=== PATIENT | female | born 1960 | race Caucasian/White ===

== ENCOUNTER 2018-10-26 13:18 | Emergency (ER) | payer BC ==
[2018-10-26] MEDS ORDERED: Aspirin 81 mg CHEW TAB* 81 MG TAB.CHEW PO ONE (13:41)
[2018-10-26] MEDS ORDERED: Nitroglycerin TAB 0.4 MG* 0.4 MG TAB SL ONE (13:45)
[2018-10-26 14:05] LABS: ABS Basophils 0 10^3/ul (0-0.2); ABS Eosinophils 0 10^3/ul (0-0.6); ABS Lymphocytes 1.6 10^3/ul (1.0-4.8); ABS Monocytes 0.5 10^3/ul (0-0.8); ABS Neutrophils 2.7 10^3/ul (1.5-7.7); ABS Nucleated RBC 0 10^3/ul; Eosinophil % 0.5 %; Hematocrit 42 % (35-47); Hemoglobin 14.1 g/dl (12.0-16.0); Lymphocyte % 32.8 %; Mean Corpuscular HGB Conc 34 g/dl (31-36); Mean Corpuscular Hemoglobin 31 pg (27-31); Mean Corpuscular Volume 90 fL (80-97); Mean Platelet Volume 8.3 fL (7.4-10.4); Nucleated Red Blood Cells % 0; Platelet Count 294 10^3/ul (150-450); Red Blood Count 4.63 10^6/ul (4.00-5.40); Red Cell Distribution Width 12 % (10.5-15); White Blood Count 4.9 10^3/ul (3.5-10.8)
[2018-10-26 14:16] LABS: Activated Partial Thrombo Time 28.5 seconds (26.0-36.3); INR 0.87 (0.77-1.02)
[2018-10-26] MEDS: NS 0.9% 1000 ML* 2,000 ML IV ONE ×2 (14:26→14:27)
[2018-10-26 14:27] LABS: Albumin 4.4 g/dL (3.2-5.2); Albumin/Globulin Ratio 1.7 (1-3); BUN/Creatinine Ratio 27.3 (8-20); Calcium 9.4 mg/dL (8.6-10.3); EGFR Non-African American 112.7 (>60); Globulin 2.6 g/dL (2-4); Magnesium 2.1 mg/dL (1.9-2.7); Potassium 3.7 mmol/L (3.5-5.0); Total Bilirubin 0.3 mg/dL (0.2-1.0)
[2018-10-26 14:48] LABS: Urine Appearance Clear; Urine Bilirubin Negative (Negative); Urine Blood Negative (Negative); Urine Color Yellow; Urine Glucose Negative (Negative); Urine Ketones Negative (Negative); Urine Nitrite Negative (Negative); Urine Protein Negative (Negative); Urine Specific Gravity 1.021 (1.010-1.030); Urine Urobilinogen Negative (Negative)
--- OUTSIDE RECORDS SUMMARY | 2018-10-26 14:48 | XMS REPORT ---
:1960 External Reference #:[id number] Author Organization [facility] Address [address] [place] [address] Phone [phone] Care Team Providers Name Role Phone Avis De La Paz M.D. Care Team Information Cook Chill Technician Unavailable Avis De La Paz M.D. Primary Care Physician Unavailable Payers Type Date Identification Numbers Payment Provider Subscriber Commercial Effective: Policy Number: BC/BS Of ROSE Zya Walden 2018 [id number] PayID: [id number] [address] [address] [place] [address] Problems Description No Information Family History Date Family Member(s) Problem(s) Comments Father due to Parkinson's Disease () - at age 77 Mother due to COPD () Mother due to Congestive Heart () - age 88 Failure Paternal Grandfather due to Stroke () Paternal Grandmother due to Heart Disease () Maternal Grandfather due to DC () Maternal Grandmother due to DC () Social History Type Date Description Comments Education Highest Level Completed, 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 [employer] Lives With Spouse Diet Healthy, Well Balanced Sleep Reports normal sleep activity Pets 2 dogs Pets 2 cats 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 Cigarette Use Never Smoked Cigarettes ETOH Use Occasional Daily Caffeine Some Caffeine Exercise Type/Frequency Exercises regularly Allergies, Adverse Reactions, Alerts Date Description Reaction Status Severity Comments 10/18/2018 Seasonal active Medications Medication Date Status Form Strength Qnty SIG Indications Ordering Provider Chlorpheniramine /0 Active Tablets 4mg as Unknown Maleate 000 needed Tylenol 0 Active Tablets 325mg take 2 Unknown 000 tablets( 650mg) by mouth every 4 hours as needed for pain Vitamin D-3 Active Tablets 5000Unit 1 by Unknown 000 mouth every day as needed Vital Signs Date Vital Result Comment 10/18/2018 BP Systolic 140 mmHg BP Diastolic 90 mmHg Heart Rate 84 /min Body Temperature 97.8 F Respiratory Rate 17 /min Height 63.5 inches 5'3.50" Weight 141.38 lb BMI (Body Mass Index) 24.6 kg/m2 Results Test Date Test Result H/L Range Note Laboratory test finding 10/20/2018 Free T3 <pending> 2.0-4.9 Free T4 <pending> 0.75-1.54 TSH <pending> 0.5-5.0 Laboratory test finding 10/20/2018 Vitamin D, 25 Hydroxy <pending> ng/mL 30-100 Procedures Date CPT Code Description Status 09/30/2016 Mammogram Completed 10/31/2009 Colonoscopy Completed Plan of Care 10/18/2018 - Chaya Carolina, FNPZ00.00 Encntr for general adult medical exam w/o abnormal findingsComments:Will come in for fasting labs Anticipatory guidance given - healthy lifestyle, safety, preventionFollow up:Followup:. (Follow up) E55.9 Vitamin D deficiency, [id number] Cardiac arrhythmia, unspecifiedComments:Refer to cardiolgy for an ECHOZ12.31 Encntr screen mammogram for malignant neoplasm of breastNew Xrays:Mammography Screening, Bilateral; 2-View Each BreastComments:Schedule mammogram
--- NOTE | 2018-10-26 14:56 | ED ---
HPI Chest Pain - HPI Summary HPI Summary: A 58 y/o female presents to the ED c/o chest pain. Additionally c/o arrhythmias. Currently, the patient is not experiencing the arrhythmias, but does have the left shoulder pain reaching 2-3/10 as she is lying down on the stretcher in the [facility]. She stated that she "does not feel sick", but this is the first time this has ever happened to her. In the ED room, the patient has a pulse of 80 BPM, O2 saturation of 100%, and blood pressure of 157/92. According to the patient, she felt like she was experiencing arrhythmias. She stated that the arrhythmia felt like "just a short weird sensation" over the last month. She noted that a ECHO was done a couple years ago, but nothing was found. However, last month, since she has been experiencing this arrhythmia, she decided to cut back on caffeine and drink more water. She characterized the arrhythmia was a "glump". She then noted that when she was walking her dogs this morning, she felt fullness, "but not a lot" of discomfort in her left chest and also had left shoulder pain. She continued to state that when she sat down, it went away, but her shoulder was still exhibiting the pain of around a 2 -3/10. After some time, she was walking across the parking lot (not walking her dogs) when she experienced the same exact pain she did before when she was walking her dogs. She denies any SOB, nausea, vomiting, abdominal pain, leg pain , headache, but did have some dizziness. The dizziness happened only one time when she had an arrhythmia that occurred within the last few weeks. The dizziness/lightheadedness didn't stay long. To alleviate the symptoms, she took 3-baby Aspirin as she was nervous. She was okay after when she was working around the apartment. She stated that last night when she was walking her dogs she was a bit achy, but nothing crazy. She noted that she did have some bad falls due to slipping on ice and being knocked over by her dog lately, with the most recent fall approximately 10/13/18. Another ECHO was done yesterday at the [facility] in which a slight Mitral Value Prolapse was found. Pt did not see the sole layer hand yesterday, just had the ECHO that was ordered by her PCP. Patient did take antibiotics for dental prophylaxis of MVP in the past , but then stopped recently per doctor's recommendations. Pt is post menopausal. Patient never had stress test done. Patient has no allergies to Aspirin or Ibuprofen, or any medications, only to shrimp. Patient drove to [facility] ED. Cardiac risks: no DM, no HTN, no hyperlipidemia, never smoked, +fam hx in many relatives, including an uncle who with CAD before the age of 50. Pt takes no daily medications. - History of Current Complaint Chief Complaint: EDChestPainROMI Time Seen by Provider: 10/26/18 13:39 Hx Obtained From: Patient Onset/Duration: Started Hours Ago, Resolved Timing: Intermittent Initial Severity: Mild Current Severity: Mild Pain Intensity: 3 Pain Scale Used: 0-10 Numeric Chest Pain Location: Left Anterior Chest Pain Radiates: Yes Chest Pain Radiates To:: Shoulder - LEFT Character: Other: - "FULLNESS" Aggravating Factor(s): Nothing Alleviating Factor(s): OTC Meds - ASPIRIN Associated Signs and Symptoms: Positive: Chest Pain, Dizziness - ONE EPISODE WITHIN THE LAST FEW WEEKS, NOT CURRENTLY. Negative: Headaches, Shortness of Breath, Fever, Nausea, Abdominal Pain, Vomiting - Risk Factors AMI/ACS Risk Factors: Family History - uncle before age 50 with supposed CAD - Allergy/Home Medications Allergies/Adverse Reactions: Allergies Allergy/AdvReac Type Severity Reaction Status Date / Time shrimp Allergy Nausea And Verified 10/26/18 14:19 Vomiting Home Medications: Home Medications NK [No Home Medications Reported] 10/26/18 [History Confirmed 10/26/18] PMH/Surg Hx/FS Hx/Imm Hx Previously Healthy: Yes Endocrine/Hematology History: Reports: Other Endocrine/Hematological Disorders - NO HX OF BLOT CLOTS OR PULMONARY EMBOLISM OR DVT Cardiovascular History: Reports: Other Cardiovascular Problems/Disorders - SLIGHT MITRAL VALVE PROLAPSE Respiratory History: Denies: Hx Asthma, Hx Pneumonia - Surgical History Surgery Procedure, Year, and Place: PER PATIENT, NO PRIOR SURGERIES. - Immunization History Date of Tetanus Vaccine: unknown Date of Influenza Vaccine: NO Infectious Disease History: No Infectious Disease History: Denies: Traveled Outside the [place] in Last 30 Days - Family History Known Family History: Positive: Cardiac Disease - MOTHER, FATHER, AND ALL GRANDPARENTS, NONE BEFORE 50. 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 [employer] Lives: With Family Alcohol Use: Occasionally Substance Use Type: Reports: None Smoking Status (MU): Never Smoked Tobacco Review of Systems Negative: Fever Positive: Chest Pain, Other - POSITIVE: ARRHYTHMIAS Negative: Shortness Of Breath Negative: Abdominal Pain, Vomiting, Nausea Positive: no symptoms reported Positive: Other - POSITIVE: LEFT SHOULDER PAIN; NEGATIVE: LEG PAIN Skin: Negative Neurological: Other - POSITIVE: DIZZINESS/LIGHTHEADEDNESS WITHIN THE LAST FEW WEEKS, NOT CURRENTLY Negative: Headache Psychological: Normal All Other Systems Reviewed And Are Negative: Yes Physical Exam - Summary Physical Exam Summary: Appearance: Well-appearing, minimal pain distress, well-nourished Skin: Warm, color reflects adequate perfusion, dry Head: Normal Head/Face inspection, atraumatic Eyes: Conjunctiva clear ENT: Normal inspection Neck: Supple, no nodes, no JVD Respiratory: Lungs clear, normal breath sounds, no respiratory distress Cardio: RRR, No murmur, pulses normal, brisk capillary refill Abdomen: Soft, nontender Bowel sounds: Present Musculoskeletal: Strength Intact/ROM intact, no calf tenderness, no edema, left shoulder with full ROM, no deformity, nontender on palpation, left chest wall under left breast with reproducible tenderness, no crepitus, no bruising, not the same pain as the "fullness". Psychological: Normal Neuro: Alert, muscle tone normal, no focal deficit Triage Information Reviewed: Yes Vital Signs On Initial Exam: Initial Vitals Temp Pulse Resp BP Pulse Ox 98.9 F 80 18 157/92 98 10/26/18 13:33 10/26/18 13:33 10/26/18 13:33 10/26/18 13:33 10/26/18 13:33 Vital Signs Reviewed: Yes Diagnostics - Vital Signs Vital Signs Temp Pulse Resp BP Pulse Ox 10/26/18 14:37 23 137/83 10/26/18 14:28 78 20 150/87 96 10/26/18 14:07 84 22 141/100 100 10/26/18 14:00 78 19 100 10/26/18 13:52 99 10/26/18 13:37 69 17 157/92 99 10/26/18 13:36 72 10 150/103 99 10/26/18 13:33 98.9 F 80 18 157/92 98 - Laboratory Lab Results: Lab Results 10/26/18 10/26/18 10/26/18 Range/Units 13:59 13:59 13:59 WBC 4.9 (3.5-10.8) 10^3/ul RBC 4.63 (4.00-5.40) 10^6/ul Hgb 14.1 (12.0-16.0) g/dl Hct 42 (35-47) % MCV 90 (80-97) fL MCH 31 (27-31) pg MCHC 34 (31-36) g/dl RDW 12 (10.5-15) % Plt Count 294 (150-450) 10^3/ul MPV 8.3 (7.4-10.4) fL Neut % (Auto) 56.0 % Lymph % (Auto) 32.8 % [place] % (Auto) 9.7 % Eos % (Auto) 0.5 % Baso % (Auto) 1.0 % Absolute Neuts (auto) 2.7 (1.5-7.7) 10^3/ul Absolute Lymphs (auto) 1.6 (1.0-4.8) 10^3/ul Absolute Monos (auto) 0.5 (0-0.8) 10^3/ul Absolute Eos (auto) 0 (0-0.6) 10^3/ul Absolute Basos (auto) 0 (0-0.2) 10^3/ul Absolute Nucleated RBC 0 10^3/ul Nucleated RBC % 0 INR (Anticoag Therapy) 0.87 (0.77-1.02) APTT 28.5 (26.0-36.3) seconds D-Dimer, Quantitative < 200 (Less Than 230) ng/mL Sodium 140 (135-145) mmol/L Potassium 3.7 (3.5-5.0) mmol/L Chloride 104 (101-111) mmol/L Carbon Dioxide 29 (22-32) mmol/L Anion Gap 7 (2-11) mmol/L BUN 15 (6-24) mg/dL Creatinine 0.55 (0.51-0.95) mg/dL Est GFR ( Amer) 136.4 (>60) Est GFR (Non-Af Amer) 112.7 (>60) BUN/Creatinine Ratio 27.3 H (8-20) Glucose 85 (70-100) mg/dL Lactic Acid (0.5-2.0) mmol/L Calcium 9.4 (8.6-10.3) mg/dL Magnesium 2.1 (1.9-2.7) mg/dL Total Bilirubin 0.30 (0.2-1.0) mg/dL AST 15 (13-39) U/L ALT 10 (7-52) U/L Alkaline Phosphatase 94 (34-104) U/L Total Creatine Kinase 54 (10-223) U/L CK-MB (CK-2) 1.4 (0.6-6.3) ng/mL Troponin I 0.00 (<0.04) ng/mL B-Natriuretic Peptide (<=100) pg/mL Total Protein 7.0 (6.4-8.9) g/dL Albumin 4.4 (3.2-5.2) g/dL Globulin 2.6 (2-4) g/dL Albumin/Globulin Ratio 1.7 (1-3) TSH Pending Thyroxine (T4) Pending 10/26/18 10/26/18 Range/Units 13:59 13:59 WBC (3.5-10.8) 10^3/ul RBC (4.00-5.40) 10^6/ul Hgb (12.0-16.0) g/dl Hct (35-47) % MCV (80-97) fL MCH (27-31) pg MCHC (31-36) g/dl RDW (10.5-15) % Plt Count (150-450) 10^3/ul MPV (7.4-10.4) fL Neut % (Auto) % Lymph % (Auto) % [place] % (Auto) % Eos % (Auto) % Baso % (Auto) % Absolute Neuts (auto) (1.5-7.7) 10^3/ul Absolute Lymphs (auto) (1.0-4.8) 10^3/ul Absolute Monos (auto) (0-0.8) 10^3/ul Absolute Eos (auto) (0-0.6) 10^3/ul Absolute Basos (auto) (0-0.2) 10^3/ul Absolute Nucleated RBC 10^3/ul Nucleated RBC % INR (Anticoag Therapy) (0.77-1.02) APTT (26.0-36.3) seconds D-Dimer, Quantitative (Less Than 230) ng/mL Sodium (135-145) mmol/L Potassium (3.5-5.0) mmol/L Chloride (101-111) mmol/L Carbon Dioxide (22-32) mmol/L Anion Gap (2-11) mmol/L BUN (6-24) mg/dL Creatinine (0.51-0.95) mg/dL Est GFR ( Amer) (>60) Est GFR (Non-Af Amer) (>60) BUN/Creatinine Ratio (8-20) Glucose (70-100) mg/dL Lactic Acid 0.7 (0.5-2.0) mmol/L Calcium (8.6-10.3) mg/dL Magnesium (1.9-2.7) mg/dL Total Bilirubin (0.2-1.0) mg/dL AST (13-39) U/L ALT (7-52) U/L Alkaline Phosphatase (34-104) U/L Total Creatine Kinase (10-223) U/L CK-MB (CK-2) (0.6-6.3) ng/mL Troponin I (<0.04) ng/mL B-Natriuretic Peptide 24 (<=100) pg/mL Total Protein (6.4-8.9) g/dL Albumin (3.2-5.2) g/dL Globulin (2-4) g/dL Albumin/Globulin Ratio (1-3) TSH Thyroxine (T4) Result Diagrams: 10/26/18 13:59 10/26/18 13:59 Lab Statement: Any lab studies that have been ordered have been reviewed, and results considered in the medical decision making process. - Radiology CXR Radiology Interpretation Completed By: Radiologist Summary of Radiographic Findings: NO ACTIVE CARDIOPULMONARY DISEASE. ED PHYSICIAN REVIEWED THIS RADIOLOGY REPORT. - EKG 1339 Cardiac Rate: NL - 69 BPM EKG Rhythm: Sinus Rhythm - 69 BPM EKG Comparison: Other - NO PRIOR TO COMPARE Summary of EKG Findings: nl YANIV CT, nl QTc, nl axis , no acute changes, downsloping ST in lead III Re-Evaluation - Re-Evaluation First Eval Re-Evaluation Time: 17:00 Change: Improved Comment: Pt remains pain free. BP systolic 125. States NTG did not really make any difference. Second Eval Re-Evaluation Time: 18:15 Change: Unchanged - remains pain free. Agrees to discharge. Bill is on phone with discharge instructions. Voices understanding, and questions answered to best of my ability. Pt, and I all agree pt should be seen 10/27/18 and pt is advised to see her PCP, or go to [facility] clinic, or return to ED. Pt's BP is 145 systolic. Chest Pain Course/Dx - Course Course Of Treatment: A 58 y/o female presents to the ED c/o chest pain. Additionally c/o arrhythmias. Currently, the patient is not experiencing the arrhythmias, but does have the left shoulder pain reaching 2-3/10 as she is lying down on the stretcher in the [facility]. She stated that she "does not feel sick", but this is the first time this has ever happened to her. In the ED room , the patient has a pulse of 80 BPM, O2 saturation of 100%, and blood pressure of 157/92. According to the patient, she felt like she was experiencing arrhythmias. She stated that the arrhythmia felt like "just a short weird sensation" over the last month. She then noted that when she was walking her dogs this morning, she felt fullness, "but not a lot" of discomfort in her left chest and also had left shoulder pain. She continued to state that when she sat down, it went away, but her shoulder was still exhibiting the pain of around a 2 -3/10. After some time, she was walking across the parking lot (not walking her dogs) when she experienced the same exact pain she did before when she was walking her dogs. She denies any SOB, nausea, vomiting, abdominal pain, leg pain , headache, but did have some dizziness. The dizziness happened only one time when she had a arrhythmia that occurred within the last few weeks. The dizziness /lightheadedness didn't stay long. Pt medications reviewed this visit. Physical examination was unremarkable except for mild reproducible chest pain under her left breast that was not the same pain as the fullness. Left shoulder exam was normal, and no murmur of click was heard by me to appreciate MVP that was evident on ECHO. A CXR revealed no active cardiopulmonary disease. An EKG revealed NSR of 69 BPM, nl YANIV CT, nl QTc, nl axis, no acute changes, downsloping ST in lead III. No prior EKG to compare to. Hematology, coagulation , Chemistry, and urinalysis screens were done. No significant laboratory abnormalities were found. Troponins x 2, three hours apart, with pt pain free in the ED were 0.00. In the ED course, the patient received an additional 81mg Aspirin to total 324mg for the day, NTG 0.4mg SL x1 that did not change her pain , and IV fluids. Pt was mildly hypertensive, systolic 140's in the ED which decreased after the NTG to 120's but then returned to 140's. Pt does not carry a dx of HTN prior to today's visit. Patient will be discharged with a diagnosis of chest pain and elevated blood pressure without diagnosis of HTN. Patient is to follow up with [facility] in 1 day. She was also advised to follow up with primary care provider, Dr. Avis De La Paz, as soon as possible. Patient is to return to ED for any new or worsening symptoms. Patient is agreeable with this plan. - Chest Pain Differential Diagnosis/HQI/PQRI: Acute LA, ACS, Angina, Chest Wall, GI Disease, Lower Respiratory Infection, Pulmonary Embolism, Other: - atypical chest pain associated with mitral valve prolapse - Diagnoses Provider Diagnoses: Elevated blood pressure reading without diagnosis of hypertension, Chest pain Discharge - Sign-Out/Discharge Documenting (check all that apply): Patient Departure - DISCHARGE - Discharge Plan Condition: Stable Disposition: HOME Patient Education Materials: Chest Pain (ED) Referrals: [facility] [Outside] - 1 Day Avis De La Paz MD [Primary Care Provider] - As Soon As Possible Additional Instructions: You had two troponin levels that were zero, meaning there is no indication of damage to your heart today. The discomfort with exertion that you describe could be angina, so you should be seen by Dr. De La Paz or our [facility] clinic tomorrow. Return to the ER if you have new or worsening symptoms. - Billing Disposition and Condition Condition: STABLE Disposition: Home - Attestation Statements Document Initiated by Scribe: Yes Documenting Scribe: Pedro Layne Provider For Whom Dariene is Documenting (Include Credential): Mesha Martinez MD Scribe Attestation: Pedro Cunningham, scribed for Mesha Martinez MD on 10/27/18 at 1632. Scribe Documentation Reviewed: Yes Provider Attestation: The documentation as recorded by the scribe, Pedro Layne accurately reflects the service I personally performed and the decisions made by me, Mesha Martinez MD Status of Scribe Document: Viewed
[2018-10-26 15:13] LABS: TSH (Thyroid Stimulating Horm) 0.89 mcIU/mL (0.34-5.60)
[2018-10-26 19:05] VITALS: BP 140/78
== END 2018-10-26 19:04 | disposition home or self-care (01) ==
LOC: ED 13:18
DX: R07.9 Chest pain, unspecified (principal); R03.0 Elevated blood-pressure reading, without diagnosis of hypertension
CPT/HCPCS: 36415; 71045; 80053; 81003; 82550; 82553; 83605; 83735; 83880; 84436; 84443; 84484; 85025; 85379; 85610; 85730; 93005; 96360; 96361; 99283; A9270-GY

== ENCOUNTER 2018-12-27 11:59 | Emergency (ER) | payer BC ==
[2018-12-27 14:04] LABS: ABS Basophils 0 10^3/ul (0-0.2); ABS Eosinophils 0 10^3/ul (0-0.6); ABS Lymphocytes 1.3 10^3/ul (1.0-4.8); ABS Monocytes 0.4 10^3/ul (0-0.8); ABS Neutrophils 3.2 10^3/ul (1.5-7.7); ABS Nucleated RBC 0 10^3/ul; Eosinophil % 0.7 %; Hematocrit 41 % (35-47); Hemoglobin 14.1 g/dl (12.0-16.0); Lymphocyte % 26.6 %; Mean Corpuscular HGB Conc 34 g/dl (31-36); Mean Corpuscular Hemoglobin 31 pg (27-31); Mean Corpuscular Volume 89 fL (80-97); Mean Platelet Volume 8.3 fL (7.4-10.4); Nucleated Red Blood Cells % 0; Platelet Count 294 10^3/ul (150-450); Red Blood Count 4.61 10^6/ul (4.00-5.40); Red Cell Distribution Width 12 % (10.5-15)
[2018-12-27 14:22] LABS: Albumin 4.6 g/dL (3.2-5.2); Albumin/Globulin Ratio 1.6 (1-3); BUN/Creatinine Ratio 25.8 (8-20); Calcium 9.8 mg/dL (8.6-10.3); EGFR African American 118.8 (>60); EGFR Non-African American 98.2 (>60); Globulin 2.8 g/dL (2-4); Total Bilirubin 0.4 mg/dL (0.2-1.0); Total Protein 7.4 g/dL (6.4-8.9)
[2018-12-27 14:26] LABS: CKMB ng/mL 1.6 ng/mL (0.6-6.3)
--- NOTE | 2018-12-27 14:56 | ED ---
Palpitations / Dysrhythmia - HPI Summary HPI Summary: Patient is a 58-year-old female who presents to the emergency room with a chief complaint of having palpitations since yesterday. The patient reports that she is feeling a fluttering in the left side of the chest. Patient reports that he makes him comfortable and is a frequent fluttering. She denies any chest pain, shortness of breath, or dizziness. Patient denies any nausea or vomiting, denies any abdominal pain diarrhea or constipation. Patient has no other complaints. She also reports that she had history of chest pain on September and she had an echocardiogram and a stress test which was negative. She has no other complaints. - History of Current Complaint Chief Complaint: EDDysrhythmPalp Time Seen by Provider: 12/27/18 14:33 Hx Obtained From: Patient Onset/Duration: Sudden Onset, Still Present Timing: Intermittent Episodes Lasting: Severity Initially: Mild Severity Currently: Mild Character: Fluttering Aggravating: Nothing Alleviating: Nothing - Allergy/Home Medications Allergies/Adverse Reactions: Allergies Allergy/AdvReac Type Severity Reaction Status Date / Time shrimp Allergy Nausea And Verified 12/27/18 12:06 Vomiting Home Medications: Home Medications Aspirin EC 81 mg PO DAILY 12/27/18 [History Confirmed 12/27/18] PMH/Surg Hx/FS Hx/Imm Hx Previously Healthy: Yes Endocrine/Hematology History: Reports: Other Endocrine/Hematological Disorders - NO HX OF BLOT CLOTS OR PULMONARY EMBOLISM OR DVT Cardiovascular History: Reports: Other Cardiovascular Problems/Disorders - SLIGHT MITRAL VALVE PROLAPSE Respiratory History: Denies: Hx Asthma, Hx Pneumonia - Surgical History Surgery Procedure, Year, and Place: PER PATIENT, NO PRIOR SURGERIES. - Immunization History Date of Tetanus Vaccine: unknown Date of Influenza Vaccine: NO Infectious Disease History: No Infectious Disease History: Denies: Traveled Outside the [place] in Last 30 Days - Family History Known Family History: Positive: Cardiac Disease - MOTHER, FATHER, AND ALL GRANDPARENTS, NONE BEFORE 50. UNCLE 40's, Other - P[place]IN[place]S, COPD, CHF - Social History Alcohol Use: Occasionally Substance Use Type: Reports: None Smoking Status (MU): Never Smoked Tobacco Review of Systems Constitutional: Negative Eyes: Negative ENT: Negative Positive: Palpitations, Other - fluttering of the chest. Respiratory: Negative Gastrointestinal: Negative Genitourinary: Negative Musculoskeletal: Negative Skin: Negative Neurological: Negative Psychological: Normal All Other Systems Reviewed And Are Negative: Yes Physical Exam - Summary Physical Exam Summary: VITAL SIGNS: Reviewed. GENERAL: Patient is a well developed and nourished female who is lying comfortable in the stretcher. Patient is not in any acute respiratory distress. HEAD AND FACE: No signs of trauma. No ecchymosis, hematomas or skull depressions. No sinus tenderness. EYES: PERRLA, EOMI x 2, No injected conjunctiva, no nystagmus. EARS: Hearing grossly intact. Ear canals and tympanic membranes are within normal limits. MOUTH: Oropharynx within normal limits. NECK: Supple, trachea is midline, no adenopathy, no JVD, no carotid bruit, no c- spine tenderness, neck with full ROM. CHEST: Symmetric, no tenderness at palpation LUNGS: Clear to auscultation bilaterally. No wheezing or crackles. CVS: Regular rate and rhythm, S1 and S2 present, no murmurs or gallops appreciated. ABDOMEN: Soft, non-tender. No signs of distention. No rebound no guarding, and no masses palpated. Bowel sounds are normal. EXTREMITIES: FROM in all major joints, no edema, no cyanosis or clubbing. NEURO: Alert and oriented x 3. No acute neurological deficits. Speech is normal and follows commands. SKIN: Dry and warm Vital Signs On Initial Exam: Initial Vitals Temp Pulse Resp BP Pulse Ox 97.5 F 74 18 163/93 99 12/27/18 12:02 12/27/18 12:02 12/27/18 12:02 12/27/18 12:02 12/27/18 12:02 Diagnostics - Vital Signs Vital Signs Temp Pulse Resp BP Pulse Ox 12/27/18 13:54 98.6 F 67 17 150/85 100 12/27/18 12:02 97.5 F 74 18 163/93 99 - Laboratory Lab Results: Lab Results 12/27/18 12/27/18 12/27/18 Range/Units 13:48 13:48 13:48 WBC 5.0 (3.5-10.8) 10^3/ul RBC 4.61 (4.00-5.40) 10^6/ul Hgb 14.1 (12.0-16.0) g/dl Hct 41 (35-47) % MCV 89 (80-97) fL MCH 31 (27-31) pg MCHC 34 (31-36) g/dl RDW 12 (10.5-15) % Plt Count 294 (150-450) 10^3/ul MPV 8.3 (7.4-10.4) fL Neut % (Auto) 63.6 % Lymph % (Auto) 26.6 % [place] % (Auto) 8.4 % Eos % (Auto) 0.7 % Baso % (Auto) 0.7 % Absolute Neuts (auto) 3.2 (1.5-7.7) 10^3/ul Absolute Lymphs (auto) 1.3 (1.0-4.8) 10^3/ul Absolute Monos (auto) 0.4 (0-0.8) 10^3/ul Absolute Eos (auto) 0 (0-0.6) 10^3/ul Absolute Basos (auto) 0 (0-0.2) 10^3/ul Absolute Nucleated RBC 0 10^3/ul Nucleated RBC % 0 APTT 29.2 (26.0-36.3) seconds Sodium 138 (135-145) mmol/L Potassium 4.0 (3.5-5.0) mmol/L Chloride 102 (101-111) mmol/L Carbon Dioxide 29 (22-32) mmol/L Anion Gap 7 (2-11) mmol/L BUN 16 (6-24) mg/dL Creatinine 0.62 (0.51-0.95) mg/dL Est GFR ( Amer) 118.8 (>60) Est GFR (Non-Af Amer) 98.2 (>60) BUN/Creatinine Ratio 25.8 H (8-20) Glucose 89 (70-100) mg/dL Lactic Acid (0.5-2.0) mmol/L Calcium 9.8 (8.6-10.3) mg/dL Magnesium 2.0 (1.9-2.7) mg/dL Total Bilirubin 0.40 (0.2-1.0) mg/dL AST 18 (13-39) U/L ALT 11 (7-52) U/L Alkaline Phosphatase 80 (34-104) U/L CK-MB (CK-2) 1.6 (0.6-6.3) ng/mL Troponin I 0.00 (<0.04) ng/mL B-Natriuretic Peptide (<=100) pg/mL Total Protein 7.4 (6.4-8.9) g/dL Albumin 4.6 (3.2-5.2) g/dL Globulin 2.8 (2-4) g/dL Albumin/Globulin Ratio 1.6 (1-3) TSH Pending 12/27/18 12/27/18 Range/Units 13:48 13:48 WBC (3.5-10.8) 10^3/ul RBC (4.00-5.40) 10^6/ul Hgb (12.0-16.0) g/dl Hct (35-47) % MCV (80-97) fL MCH (27-31) pg MCHC (31-36) g/dl RDW (10.5-15) % Plt Count (150-450) 10^3/ul MPV (7.4-10.4) fL Neut % (Auto) % Lymph % (Auto) % [place] % (Auto) % Eos % (Auto) % Baso % (Auto) % Absolute Neuts (auto) (1.5-7.7) 10^3/ul Absolute Lymphs (auto) (1.0-4.8) 10^3/ul Absolute Monos (auto) (0-0.8) 10^3/ul Absolute Eos (auto) (0-0.6) 10^3/ul Absolute Basos (auto) (0-0.2) 10^3/ul Absolute Nucleated RBC 10^3/ul Nucleated RBC % APTT (26.0-36.3) seconds Sodium (135-145) mmol/L Potassium (3.5-5.0) mmol/L Chloride (101-111) mmol/L Carbon Dioxide (22-32) mmol/L Anion Gap (2-11) mmol/L BUN (6-24) mg/dL Creatinine (0.51-0.95) mg/dL Est GFR ( Amer) (>60) Est GFR (Non-Af Amer) (>60) BUN/Creatinine Ratio (8-20) Glucose (70-100) mg/dL Lactic Acid 0.4 L (0.5-2.0) mmol/L Calcium (8.6-10.3) mg/dL Magnesium (1.9-2.7) mg/dL Total Bilirubin (0.2-1.0) mg/dL AST (13-39) U/L ALT (7-52) U/L Alkaline Phosphatase (34-104) U/L CK-MB (CK-2) (0.6-6.3) ng/mL Troponin I (<0.04) ng/mL B-Natriuretic Peptide 15 (<=100) pg/mL Total Protein (6.4-8.9) g/dL Albumin (3.2-5.2) g/dL Globulin (2-4) g/dL Albumin/Globulin Ratio (1-3) TSH Result Diagrams: 12/27/18 13:48 12/27/18 13:48 Lab Statement: Any lab studies that have been ordered have been reviewed, and results considered in the medical decision making process. Course/Dx - Course Assessment/Plan: Blood work without any significant abnormality, troponin is 0.00 and the TSH is normal. EKG is a normal sinus rhythm without any ST elevations. Chest x-ray impression: No acute pathology. In the ED course the patient continues to be asymptomatic therefore the patient will be discharged home with follow-up with primary care physician. Patient may benefit from a Holter monitor at this time. I discussed all the findings and test results with the patient. Patient was instructed to return to the emergency room immediately if any of the symptoms return or worsens. Plan of care was discussed with the patient and understands and agrees. All questions were answered at patient satisfaction. There were no further complaints or concerns. Lung exam before discharge: CTA B/L. Good air exchange. No wheezing or crackles heard. CVS: S1 and S2 present. No murmurs appreciated. Patient is alert and oriented x 3. Patient is hemodynamically stable. Patient will be discharged home with follow up PCP in the next 2-3 days - Diagnoses Differential Diagnosis/HQI/PQRI: Positive: Paroxymal SVT, V-Tach Provider Diagnoses: Palpitations Discharge - Sign-Out/Discharge Documenting (check all that apply): Patient Departure Patient Received Moderate/Deep Sedation with Procedure: No - Discharge Plan Condition: Stable Disposition: HOME Patient Education Materials: Heart Palpitations (DC) Referrals: Avis De La Paz MD [Primary Care Provider] - Additional Instructions: Patient with follow-up with primary care physician next 2 days. Patient would benefit from a Holter monitor. Patient was recommended to return to the emergency room if the symptoms worsen. - Billing Disposition and Condition Condition: STABLE Disposition: Home - Attestation Statements Document Initiated by Ivania: No
[2018-12-27 15:00] LABS: TSH (Thyroid Stimulating Horm) 0.69 mcIU/mL (0.34-5.60)
[2018-12-27 16:03] VITALS: BP 140/99
== END 2018-12-27 16:03 | disposition home or self-care (01) ==
LOC: ED 11:59
DX: R00.2 Palpitations (principal)
CPT/HCPCS: 36415; 71045; 80053; 82150; 82553; 83605; 83690; 83735; 83880; 84443; 84484; 85025; 85730; 93005; 99282